=== PATIENT | female | born 1940 | race Caucasian/White ===

== ENCOUNTER 2019-09-20 08:01 | Inpatient (IN) | payer MEDICARE, BC ==
[~2019-09-20] VITALS: Ht 167.6 cm; Wt 80.0 kg
[~2019-09-20 08:01] MED LIST: AMIO200T61 PO; ASPI81TA35 PO; ATOR10TA70 PO; FURO-149 PO; LEVO75TA7 PO; LOSA50TA64 PO
[2019-09-20 08:45] LABS: BASOPHILS # (AUTO) 0.1 X10'3 (0-0.2); BASOPHILS % (AUTO) 0.8 % (0-1); EOSINOPHILS % (AUTO) 0.5 % (0-6); HEMATOCRIT 35.2 % (35.0-45.0); HEMOGLOBIN 12.2 g/dl (12.0-16.0); LYMPHOCYTES % (AUTO) 10.2 % (21-51); MEAN CORPUSCULAR HEMOGLOBIN 31.4 PG (27.0-31.0); MEAN CORPUSCULAR HGB CONC 34.7 g/dL (33.0-36.5); MEAN CORPUSCULAR VOLUME 90.4 FL (78-98); MEAN PLATELET VOLUME 7.8 FL (7.4-10.4); MONOCYTES # (AUTO) 0.4 X10'3 (0-0.9); MONOCYTES % (AUTO) 3.8 % (2-12); NEUTROPHILS # (AUTO) 8.3 X10'3 (1.8-7.7); NEUTROPHILS % (AUTO) 84.7 % (42-75); PLATELET COUNT 301 X10'3 (140-440); RED BLOOD COUNT 3.89 X10'6 (4.20-5.60); RED CELL DISTRIBUTION WIDTH 13.2 % (11.5-14.5); WHITE BLOOD COUNT 9.8 X10'3 (4.5-11.0)
[2019-09-20 08:58] LABS: ALANINE AMINOTRANSFERASE 16 U/L (12-78); ALBUMIN 3.6 G/DL (3.4-5.0); ALKALINE PHOSPHATASE 87 IU/L (46-116); ANION GAP 7 (8-16); ASPARTATE AMINO TRANSFERASE 23 U/L (10-37); BILIRUBIN,TOTAL 0.5 MG/DL (0.1-1.0); BLOOD UREA NITROGEN 21 MG/DL (7-18); BUN/CREATININE RATIO 21.9 (6.6-38.0); CALCIUM 9.5 MG/DL (8.5-10.1); CHLORIDE 101 MMOL/L (99-107); CREATININE 0.96 MG/DL (0.40-0.90); GLUCOSE 118 MG/DL (70-104); POTASSIUM 3.7 MMOL/L (3.5-5.1); SODIUM 137 MMOL/L (135-145); TOTAL CARBON DIOXIDE 29.3 MMOL/L (24-32); TOTAL PROTEIN 7.2 G/DL (6.4-8.2); eGFR 56 ML/MIN
[2019-09-20] MEDS ORDERED: nitroGLYCERIN-Tridil 50MG/D5W 250 ML IV PRN (09:24)
[2019-09-20] MEDS ORDERED: diltiazem 5mg/ml 5ml inj. IV ONE (09:25)
[2019-09-20] MEDS ORDERED: aspirin 81mg tab.chew PO ONE (09:25)
--- NOTE | 2019-09-20 10:04 | NUR ---
RORY SARAH IN TO SEE PTHARJINDER TO ADMIT
--- NOTE | 2019-09-20 10:05 | NUR ---
NTG DRIP HELD DUT TO HYPOTENSION.
[2019-09-20] MEDS ORDERED: bisacodyl 10mg suppository rectal RC PRN (10:10)
[2019-09-20] MEDS ORDERED: magnesium Cl slow-release 64mg tablet PO PRN (10:10)
[2019-09-20] MEDS ORDERED: morphine 2 MG/ML inj. syringe IV PRN ×2 (10:10)
[2019-09-20] MEDS ORDERED: diphenhydrAMINE 25mg capsule PO PRN (10:10)
[2019-09-20] MEDS ORDERED: HYDROcodone/acetaminophen 10/325mg tab PO PRN (10:10)
[2019-09-20] MEDS ORDERED: HYDROcodone/acetaminophen 5mg/325mg tablet PO PRN (10:10)
[2019-09-20] MEDS ORDERED: magnesium 4gm in 100ml NS 100 ML IV PRN (10:10)
[2019-09-20] MEDS ORDERED: mag hydrox/Alum hydrox/simeth 30ml oral suspension PO PRN (10:10)
[2019-09-20] MEDS ORDERED: magnesium 2GM in 50ml NS 50 ML IV PRN (10:10)
[2019-09-20] MEDS ORDERED: ondansetron/PF 4mg/2ml inj IV PRN (10:10)
[2019-09-20] MEDS ORDERED: acetaminophen 650mg rectal suppository RC PRN (10:10)
[2019-09-20] MEDS ORDERED: acetaminophen 325mg tablet PO PRN ×2 (10:10)
[2019-09-20] MEDS ORDERED: magnesium hydroxide 30ml (MOM) UD suspension PO PRN (10:10)
[2019-09-20] MEDS ORDERED: potassium Cl 20 mEq SR tablet PO PRN ×2 (10:10)
[2019-09-20] MEDS ORDERED: potassium CL 10mEq/100ml bag 100 ML IV PRN ×2 (10:10)
[2019-09-20] MEDS ORDERED: diltiazem-NS 100mg/100ml 100 ML IV PRN (10:15)
--- NOTE | 2019-09-20 10:15 | NUR ---
SON UPDATED ON PT STATUS AT PT REQUEST
[2019-09-20] MEDS ORDERED: HYDR12.55 PO (10:23)
[2019-09-20] MEDS ORDERED: PRAV10TA39 PO (10:24)
[2019-09-20] MEDS ORDERED: digoxin 250mcg/ml 2ml ampule IV ONE ×3 (10:30→22:30)
[2019-09-20 10:41] LABS: HEMOGLOBIN A1C 4.8 % (4.5-6.2)
[2019-09-20] MEDS: normal saline 1000ml 1,000 ML IV SCH ×2 (10:51→13:04)
--- NOTE | 2019-09-20 11:18 | NUR ---
Received report from Sallie VILLANUEVA in ED. Patient will be getting echo done in ED then will be admitted to room 7185K
--- NOTE | 2019-09-20 12:04 | NUR ---
Patient admitted to [facility]. patient oriented to room, hooked up to bedside mobile. 2 RN skin check done. Upon arrival, patient in sinus rimma and on cardizem gtt @ 5 ml/hr- will page . Vital signs stable, patient has no complaints at this time
[2019-09-20 12:10] VITALS: BP 118/40
[2019-09-20] MEDS ORDERED: enoxaparin 100mg/ml syringe SUBCUT SCH (12:10)
--- NOTE | 2019-09-20 12:22 | NUR ---
paged PAGER ID: [phone] MESSAGE: Kay walsh [phone]. RE Antony Cruz [id number]. Patient just admitted to room. Currently sinus rimma- rate 45-50. Drip currently off. Would you like me to D/C drip or leave it as ordered as PRN?
[2019-09-20] MEDS ORDERED: heparin 10,000 units/1 ML INJ IV ONE (12:25)
[2019-09-20] MEDS ORDERED: heparin 10,000 units/1 ML INJ IV PRN (12:25)
--- NOTE | 2019-09-20 12:29 | NUR ---
Spoke to Dr Wright regarding patient's decreased heart rate. Orders from MD to discontinue cardizem drip, and continue with orders to initiate heparin drip.
[2019-09-20] MEDS: heparin 25,000 UNIT/250ml bag 250 ML IV SCH (12:56)
[2019-09-20 14:45] VITALS: BP 128/52
[2019-09-20 15:00] VITALS: BP 128/52
--- NOTE | 2019-09-20 15:15 | NUR ---
Troponin 5.41 reported from lab, Dr Wright said he will reach out to cardiology and to make pt NPO at this time.
--- NOTE | 2019-09-20 16:23 | NUR ---
paged PAGER ID: [phone] MESSAGE: Kay walsh [phone]. RE Antony Madrigal [id number]. Patient has not eaten today and keeps asking when she can eat-- do you still want patient to be NPO now or NPO @ midnight?
--- NOTE | 2019-09-20 16:32 | NUR ---
Held 1630 IV push Digoxin due to patient's HR ranging between 58-62
[2019-09-20 18:00] VITALS: BP 145/61
--- NOTE | 2019-09-20 18:00 | NUR ---
Patient in room U 3025. I have received report from Joann and had the opportunity to ask questions and assume patient care. Patient is sitting in bed and eating dinner. NS running at 75 and heparin drip running at 900 gtt. Patient stable at this time.
--- NOTE | 2019-09-20 18:25 | NUR ---
Problems reprioritized. Patient report given, questions answered & plan of care reviewed with Margarette VILLANUEVA and Zohreh VILLANUEVA.
--- NOTE | 2019-09-20 18:30 | NUR ---
Patient in room PCU 3025. I have received report from RICH ivory and had the opportunity to ask questions and assume patient care.
[2019-09-20 20:00] VITALS: BP_SYST 144; BP_SYST 152; BP_SYST 155; BP_DIAS 47; BP_DIAS 56; BP_DIAS 64
[2019-09-20] MEDS: K and/or MAG REPLACEMENT MC SCH (20:00)
--- NOTE | 2019-09-20 20:08 | NUR ---
Lab called with critical troponin of 14.71. Dr. Zapata was notified by phone at 2004. No orders given.
[2019-09-20] MEDS ORDERED: temazepam 15mg capsule PO PRN (21:00)
[2019-09-20] MEDS: aspirin 81mg tablet.DR PO SCH (21:00)
[2019-09-20] MEDS: tirofiban 5mg in NS 100mL 100 ML IV SCH (21:44)
[2019-09-20 22:00] VITALS: BP 152/64
[2019-09-20] MEDS: levoTHYROXINE 100mcg tablet PO SCH (22:40)
[2019-09-20] MEDS: atorvastatin 20mg tablet PO SCH (22:40)
[2019-09-21] VITALS (9 sets, daily range): BP systolic 142–213; BP diastolic 46–78
[2019-09-21] MEDS: tirofiban 5mg in NS 100mL 100 ML IV SCH ×4 (03:40→22:22)
[2019-09-21 04:55] LABS: BASOPHILS % (AUTO) 0.5 % (0-1); EOSINOPHILS % (AUTO) 0.6 % (0-6); HEMATOCRIT 32.5 % (35.0-45.0); HEMOGLOBIN 11.3 g/dl (12.0-16.0); LYMPHOCYTES # (AUTO) 1.3 X10'3 (1.1-4.8); MEAN CORPUSCULAR HEMOGLOBIN 31.6 PG (27.0-31.0); MEAN CORPUSCULAR HGB CONC 34.9 g/dL (33.0-36.5); MEAN CORPUSCULAR VOLUME 90.6 FL (78-98); MEAN PLATELET VOLUME 8.2 FL (7.4-10.4); MONOCYTES # (AUTO) 0.4 X10'3 (0-0.9); MONOCYTES % (AUTO) 5.9 % (2-12); NEUTROPHILS # (AUTO) 4.6 X10'3 (1.8-7.7); PLATELET COUNT 298 X10'3 (140-440); RED BLOOD COUNT 3.59 X10'6 (4.20-5.60); RED CELL DISTRIBUTION WIDTH 12.8 % (11.5-14.5); WHITE BLOOD COUNT 6.3 X10'3 (4.5-11.0)
--- NOTE | 2019-09-21 05:12 | NUR ---
Orientee documentation: I have reviewed and agree with all interventions, assessments performed and documented by Zohreh Cruz RN.
[2019-09-21 05:15] LABS: ALANINE AMINOTRANSFERASE 21 U/L (12-78); ALBUMIN 2.9 G/DL (3.4-5.0); ALBUMIN/GLOBULIN RATIO 0.9 (1.1-1.5); ALKALINE PHOSPHATASE 77 IU/L (46-116); ANION GAP 6 (8-16); ASPARTATE AMINO TRANSFERASE 102 U/L (10-37); BILIRUBIN,TOTAL 0.6 MG/DL (0.1-1.0); BLOOD UREA NITROGEN 21 MG/DL (7-18); BUN/CREATININE RATIO 23.3 (6.6-38.0); CALCIUM 8.6 MG/DL (8.5-10.1); CHLORIDE 102 MMOL/L (99-107); GLUCOSE 113 MG/DL (70-104); POTASSIUM 3.8 MMOL/L (3.5-5.1); SODIUM 137 MMOL/L (135-145); TOTAL CARBON DIOXIDE 28.6 MMOL/L (24-32); eGFR 60 ML/MIN
[2019-09-21 05:16] LABS: CHOL/HDL RATIO 4.4 (0.00-4.99); CHOLESTEROL 222 MG/DL (0-200); HDL CHOLESTEROL 50 MG/DL (35-60); LDL CHOLESTEROL 154 MG/DL (50-100); PHOSPHORUS 2.8 MG/DL (2.3-4.5); TRIGLYCERIDES 154 MG/DL (20-135)
--- NOTE | 2019-09-21 06:00 | NUR ---
Patient in room PCU 3025. I have received report from valentina Osorio and had the opportunity to ask questions and assume patient care.
--- NOTE | 2019-09-21 06:20 | NUR ---
Patient in room PCU 3025. I have received report from Margarette RN and RICH Bruner and had the opportunity to ask questions and assume patient care.
--- NOTE | 2019-09-21 06:27 | NUR ---
Problems reprioritized. Patient report given, questions answered & plan of care reviewed with Shell Echevarria RN and RICH Palmer.
[2019-09-21] MEDS ORDERED: digoxin 125mcg (0.125mg) tablet PO SCH (07:00)
--- NOTE | 2019-09-21 07:01 | NUR ---
Spoke with hailey Guerin to feed pt breakfast and keep NPO after 12:00pm. He will heart cath her around 3:30/4pm.
[2019-09-21] MEDS: HYDROchlorothiazide 12.5mg capsule PO SCH (07:33)
[2019-09-21] MEDS: losartan 50mg tablet PO SCH ×2 (07:34→20:55)
[2019-09-21] MEDS: levoTHYROXINE 100mcg tablet PO SCH (07:35)
[2019-09-21] MEDS: atorvastatin 20mg tablet PO SCH (07:35)
[2019-09-21] MEDS: K and/or MAG REPLACEMENT MC SCH ×2 (07:40→20:00)
[2019-09-21] MEDS: heparin 25,000 UNIT/250ml bag 250 ML IV SCH ×2 (10:47→17:05)
[2019-09-21] MEDS: normal saline 1000ml 1,000 ML IV SCH (15:33)
--- NOTE | 2019-09-21 18:03 | NUR ---
Orientee documentation: I have reviewed and agree with all interventions, assessments performed and documented by RICH Saini.
--- NOTE | 2019-09-21 18:04 | NUR ---
[place]rientee Medication Administration: For this medication-pass time frame, all medication were reviewed, dispensed, administered and documented per hospital policy by RICH Saini.
--- NOTE | 2019-09-21 18:18 | NUR ---
Patient in room PCU 3025. I have received report from RICH Goff and had the opportunity to ask questions and assume patient care.
--- NOTE | 2019-09-21 18:19 | NUR ---
Problems reprioritized. Patient report given, questions answered & plan of care reviewed with RICH Pfeiffer. Explained PTT was drawn a little late, it just resulted and she informed me she will change the rate per protocol. All needs met at this time.
[2019-09-21] MEDS: aspirin 81mg tablet.DR PO SCH (20:55)
[2019-09-21] MEDS ORDERED: amLODIPine 2.5mg tablet PO ONE (23:50)
[2019-09-22] VITALS (10 sets, daily range): BP systolic 125–190; BP diastolic 43–77
[2019-09-22 00:16] LABS: BASOPHILS % (AUTO) 0.4 % (0-1); EOSINOPHILS # (AUTO) 0.1 X10'3 (0-0.9); EOSINOPHILS % (AUTO) 0.5 % (0-6); HEMATOCRIT 35.2 % (35.0-45.0); HEMOGLOBIN 12.3 g/dl (12.0-16.0); LYMPHOCYTES # (AUTO) 1.1 X10'3 (1.1-4.8); LYMPHOCYTES % (AUTO) 11.1 % (21-51); MEAN CORPUSCULAR HEMOGLOBIN 31.6 PG (27.0-31.0); MEAN CORPUSCULAR VOLUME 90.2 FL (78-98); MEAN PLATELET VOLUME 7.6 FL (7.4-10.4); MONOCYTES # (AUTO) 0.5 X10'3 (0-0.9); MONOCYTES % (AUTO) 4.8 % (2-12); NEUTROPHILS # (AUTO) 8.5 X10'3 (1.8-7.7); NEUTROPHILS % (AUTO) 83.2 % (42-75); PLATELET COUNT 326 X10'3 (140-440); RED BLOOD COUNT 3.91 X10'6 (4.20-5.60); RED CELL DISTRIBUTION WIDTH 13.2 % (11.5-14.5); WHITE BLOOD COUNT 10.2 X10'3 (4.5-11.0)
[2019-09-22 00:29] LABS: ALANINE AMINOTRANSFERASE 28 U/L (12-78); ALBUMIN 3.3 G/DL (3.4-5.0); ALBUMIN/GLOBULIN RATIO 0.9 (1.1-1.5); ALKALINE PHOSPHATASE 90 IU/L (46-116); ANION GAP 8 (8-16); ASPARTATE AMINO TRANSFERASE 113 U/L (10-37); BILIRUBIN,TOTAL 0.8 MG/DL (0.1-1.0); BLOOD UREA NITROGEN 19 MG/DL (7-18); BUN/CREATININE RATIO 19.8 (6.6-38.0); CALCIUM 8.9 MG/DL (8.5-10.1); CHLORIDE 102 MMOL/L (99-107); CREATININE 0.96 MG/DL (0.40-0.90); GLUCOSE 123 MG/DL (70-104); MAGNESIUM 1.9 MG/DL (1.5-2.4); PHOSPHORUS 2.5 MG/DL (2.3-4.5); POTASSIUM 3.8 MMOL/L (3.5-5.1); SODIUM 137 MMOL/L (135-145); TOTAL CARBON DIOXIDE 27.1 MMOL/L (24-32); TOTAL PROTEIN 6.9 G/DL (6.4-8.2); eGFR 56 ML/MIN
[2019-09-22] MEDS: normal saline 1000ml 1,000 ML IV SCH (05:41)
[2019-09-22] MEDS: tirofiban 5mg in NS 100mL 100 ML IV SCH (05:41)
[2019-09-22] MEDS ORDERED: midazolam 2 mg/2 ml injection ONE ×2 (06:00→06:37)
[2019-09-22] MEDS ORDERED: fentaNYL/PF 50MCG/1 ML 2ML syringe ONE (06:01)
[2019-09-22] MEDS ORDERED: LIDOcaine 1% (10mg/ml)w/preservative injection 20ml MDV ONE ×2 (06:01→06:37)
[2019-09-22] MEDS ORDERED: heparin 1,000unit/ml 10ml vial 10 ML ONE (06:01)
[2019-09-22] MEDS ORDERED: iohexol 350MG/ML 100ml bottle IV ONE (06:01)
--- NOTE | 2019-09-22 06:41 | NUR ---
Problems reprioritized. Patient report given, questions answered & plan of care reviewed with RICH Zepeda.
--- NOTE | 2019-09-22 06:50 | NUR ---
Patient in room PCU 3025. I have received report from Margarette VILLANUEVA and had the opportunity to ask questions and assume patient care.
[2019-09-22] MEDS: atorvastatin 20mg tablet PO SCH (07:57)
[2019-09-22] MEDS: HYDROchlorothiazide 12.5mg capsule PO SCH (07:57)
[2019-09-22] MEDS: levoTHYROXINE 100mcg tablet PO SCH (07:57)
[2019-09-22] MEDS: losartan 50mg tablet PO SCH (07:57)
[2019-09-22] MEDS ORDERED: atorvastatin 10mg tablet PO SCH (08:00)
[2019-09-22] MEDS ORDERED: clopidogrel 75mg tablet PO SCH (08:00)
[2019-09-22] MEDS: K and/or MAG REPLACEMENT MC SCH (08:00)
[2019-09-22] MEDS ORDERED: pravastatin 10mg tablet PO SCH (08:00)
[2019-09-22] MEDS ORDERED: amiodarone 200mg tablet PO SCH (08:00)
[2019-09-22] MEDS ORDERED: PRAV80TA3 PO (12:54)
[2019-09-22] MEDS ORDERED: APIX5TAB3 PO (12:54)
[2019-09-22] MEDS ORDERED: LEVO100T9 PO (12:54)
[2019-09-22] MEDS ORDERED: AMIO200T61 PO (12:54)
[2019-09-22] MEDS ORDERED: CLOP75TA8 PO (12:58)
[2019-09-22] MEDS ORDERED: metoprolol succinate 25mg (24-HOUR) SR. Tablet PO SCH (13:00)
[2019-09-22] MEDS ORDERED: METO-395 PO (13:00)
--- NOTE | 2019-09-22 14:53 | NUR ---
Patient safe for discharge per MD orders, discharge instructions reviewed and questions answered, prescriptions sent into patient pharmacy, piv and tele DC'd, wheeled to lobby, picked up by son in private vehicle, attempted to call in appointment with Dr. Hansen's office, unable to do so.
--- NOTE | 2019-09-27 12:44 | NUR ---
Case Management DC follow up: Spoke to pt via telephone. s/p: afib Reports: "feeling pretty good, more clear headed" Denies: SOB, resp distress, acute/persistent CP, GARCIA, blurry vision, N/V, emergent general pain, abd tenderness or distention, vertigo, syncope, fever, unexplained bruising, bleeding. Verbalizes understanding of s/s that would warrant 9-11/ER visit for further evaluation. Went over orthostatic hypotension protocol as a precaution, pt verbalizes understanding, compliance. Verbalizes understanding of current/new Rx and changes in dosages & why prescribed; taking as ordered, no ase noted r/t polypharmacy. Acknowledges need to follow-up/keep appts w/PCP/Dr Salcido already went to see post DC, pt will need Labs/TSH in 3-4 wks r/t change in Synthroid dose; awaiting call back from Dr Hansen to schedule follow up appt. Questions answered, needs met at DC. No further questions at this time.
== END 2019-09-22 14:40 | disposition home or self-care (01) | DRG 282 ==
LOC: ER 08:01 → ED HOLD 10:09 → EDBEDREQ 10:46 → PCU 3S 12:04
PROVIDERS: ADMIT Family Medicine; ATTEND Family Medicine
DX: I48.0 Paroxysmal atrial fibrillation (principal); I21.4 Non-ST elevation (NSTEMI) myocardial infarction; E78.5 Hyperlipidemia, unspecified; I11.0 Hypertensive heart disease with heart failure; I35.0 Nonrheumatic aortic (valve) stenosis; I25.10 Atherosclerotic heart disease of native coronary artery without angina pectoris; M19.90 Unspecified osteoarthritis, unspecified site; Z66 Do not resuscitate; I50.9 Heart failure, unspecified; Z96.643 Presence of artificial hip joint, bilateral; E03.2 Hypothyroidism due to medicaments and other exogenous substances; Z95.1 Presence of aortocoronary bypass graft; Z82.49 Family history of ischemic heart disease and other diseases of the circulatory system; I25.2 Old myocardial infarction; Z79.82 Long term (current) use of aspirin; Z79.890 Hormone replacement therapy; Z79.899 Other long term (current) drug therapy; Z83.3 Family history of diabetes mellitus; Z88.8 Allergy status to other drugs, medicaments and biological substances
CPT/HCPCS: 36415; 71045; 80053; 80061; 80162; 83036; 83735; 84100; 84443; 84484; 85025; 85730; 87081; 93005; 93306; 99152; 99285; A4620; A6258; C1769; G0378; J1160; J1644; J2001; J2250; J3010; J3246; J3490; J7030; Q9967

== ENCOUNTER 2023-08-04 17:09 | Emergency (ER) | payer MEDICARE, BC ==
[~2023-08-04] VITALS: Ht 167.6 cm; Wt 77.5 kg
[~2023-08-04 17:09] MED LIST changes: +AMI200T PO; -AMIO200T61 PO; +APIX5TAB3 PO; -ASPI81TA35 PO; -ATOR10TA70 PO; +CLOP-32 PO; -FURO-149 PO; +HYDR12.55 PO; +LEVO100T9 PO; -LEVO75TA7 PO; +METO-395 PO; +PRAV80TA3 PO
[2023-08-04 17:20] VITALS: BP 219/84; PULSE 57; RESP 18; TEMP 98; O2SAT 99
[2023-08-04 18:51] LABS: BILIRUBIN,URINE NEGATIVE (Neg); CLARITY,URINE SLIGHTLY CLOUDY (Clear); COLOR,URINE YELLOW (Yellow); GLUCOSE, URINE NEGATIVE (Neg); KETONES,URINE NEGATIVE (Neg); LEUKOCYTE ESTERASE ,URINE SMALL (Neg); NITRITES, URINE NEGATIVE (Neg); OCCULT BLOOD,URINE NEGATIVE (Neg); PROTEIN,URINE NEGATIVE (Neg); UA COLLECTION TYPE CLN CATCH MIDSTREAM; UROBILINOGEN,URINE 0.2 E.U/dL (0.2-1.0)
[2023-08-04 18:56] LABS: SQUAMOUS EPITHELIAL CELL,UR MANY /LPF (FEW)
[2023-08-04 18:57] LABS: BACTERIA,URINE 1+ /HPF (Neg); RBC,URINE 0-2 /HPF (0-2); WBC,URINE 50-100 /HPF (0-4)
[2023-08-04] MEDS ORDERED: CEPH-585 PO (19:03)
== END 2023-08-04 19:16 | disposition home or self-care (01) ==
LOC: ER 17:10
DX: N39.0 Urinary tract infection, site not specified (principal); Z88.8 Allergy status to other drugs, medicaments and biological substances; I11.0 Hypertensive heart disease with heart failure; I50.9 Heart failure, unspecified; I25.10 Atherosclerotic heart disease of native coronary artery without angina pectoris; I25.2 Old myocardial infarction; Z95.1 Presence of aortocoronary bypass graft; G89.29 Other chronic pain
CPT/HCPCS: 81001; 99283

== ENCOUNTER 2025-01-23 11:19 | Day surgery (SDC) | payer BC, MEDICARE ==
[~2025-01-23] VITALS: Ht 167.6 cm; Wt 77.6 kg
[2025-01-23] VITALS (14 sets, daily range): BP systolic 139–188; BP diastolic 62–87; PULSE 61–69; RESP 14–20; TEMP 98.1; O2SAT 89–98
[~2025-01-23 11:19] MED LIST changes: -AMI200T PO; +ATOR20TA PO; -CLOP-32 PO; +FURO-149 PO; -HYDR12.55 PO; -LEVO100T9 PO; +LEVO75TA PO; -METO-395 PO; -PRAV80TA3 PO
--- NOTE | 2025-01-23 12:02 | ELECTROCARDIOGRAPH REPORT ---
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 DANGELO Che Measurements Intervals [place] Rate: 58 P: 72 NC: 231 QRS: 97 QRSD: 115 T: 253 QT: 478 QTc: 470 Interpretive Statements Sinus rhythm Ventricular premature complex Prolonged NC interval Probable left atrial enlargement Consider left ventricular hypertrophy Inferior infarct, age indeterminate ST elevation, consider anterior injury Lateral leads are also involved Electronically Signed On 01-23-2025 16:30:[address] DANGELO Che Please click the below link to view image of tracing.
[2025-01-23] MEDS ORDERED: POTA-208 PO (12:08)
[2025-01-23] MEDS ORDERED: FURO-150 PO (12:08)
[2025-01-23] MEDS ORDERED: TRAV2.5D6 RIGHTEYE (12:08)
[2025-01-23] MEDS ORDERED: APIX5TAB3 PO (12:08)
[2025-01-23] MEDS ORDERED: CARV3.122 PO (12:08)
[2025-01-23] MEDS ORDERED: BRIM5DRO32 RIGHTEYE (12:08)
[2025-01-23] MEDS ORDERED: SPIR25TA5 PO (12:08)
[2025-01-23 12:39] LABS: MEAN PLATELET VOLUME 8.2 FL (7.4-10.4); RED CELL DISTRIBUTION WIDTH 13.6 % (11.5-14.5)
[2025-01-23 12:44] LABS: APTT 24 SECONDS (22-32); INR 1.0 INR
[2025-01-23 12:50] LABS: CREATININE 0.89 MG/DL (0.40-0.90); TOTAL CARBON DIOXIDE 26.0 MMOL/L (24-32); eCRCL 42 ML/MIN; eGFR 60 ML/MIN
[2025-01-23] MEDS ORDERED: LIDOcaine 1% 30ml preserv. free vial ONE (15:58)
[2025-01-23] MEDS ORDERED: midazolam 1 mg/ML 2ml injection ONE (15:59)
[2025-01-23] MEDS ORDERED: fentaNYL/PF 50MCG/1 ML 2ML syringe ONE (15:59)
[2025-01-23] MEDS ORDERED: iohexol 350 MG/ML 50ML vial IV ONE ×2 (17:03→17:10)
[2025-01-23] MEDS ORDERED: heparin 1,000unit/ml 10ml vial 10 ML ONE (17:14)
[2025-01-23] MEDS ORDERED: clopidogrel 300mg tablet ONE (17:35)
[2025-01-23] MEDS ORDERED: CLOP-32 PO (19:10)
[2025-01-23] MEDS: hydrALAZINE 20mg/ml inj. IV ONE (19:12)
[2025-01-23] MEDS ORDERED: ASPI-1265 PO (19:13)
[2025-01-23] MEDS: albuterol 2.5 MG/3 ML nebule NEB ONE (19:17)
[2025-01-23] MEDS: albuterol 2.5 MG/3 ML nebule ONE (19:18)
[2025-01-23] MEDS ORDERED: OXAZEpam 15mg capsule PO PRN (19:30)
[2025-01-23] MEDS ORDERED: HYDROcodone/acetaminophen 10/325mg tab PO PRN (19:30)
[2025-01-23] MEDS ORDERED: HYDROcodone/acetaminophen 5mg/325mg tablet PO PRN (19:30)
[2025-01-23] MEDS: mag hydrox/Alum hydrox/simeth 30ml oral suspension PO ONE (19:46)
[2025-01-24 07:30] LABS: ISTAT HGB MIX 9.5 g/dl (12.0-16.0); ISTAT Hct MIX 28 %PCV (35-45); ISTAT O2 SATURATION MIX VENOUS 56 % (60-80); ISTAT SOURCE VEN
--- NOTE | 2025-01-27 13:21 | CARDIOLOGY REPORT ---
DATE OF SERVICE: 01/23/2025 DICTATING PHYSICIAN: Aislinn Hansen MD CARDIAC CATHETERIZATION REPORT DATE OF STUDY: 01/23/2025 PROCEDURES: * Right heart catheterization. * Selective coronary angiography. * Selective coronary artery bypass graft angiography x 2. * Selective left internal mammary artery angiography. * Aortic root angiography. * Angioplasty of the saphenous vein graft to the right coronary artery. * Stenting x 1 of the saphenous vein graft to the right coronary artery. * Conscious sedation monitoring time for 60 minutes. INDICATION: Aortic stenosis. PHYSICIAN: Aislinn Hansen MD DESCRIPTION OF PROCEDURE: After informed consent was obtained, the patient was brought to the lab where she was prepped and draped in the usual sterile fashion. A 6-Danish sheath was inserted into the right femoral artery and an 8-Danish sheath in the right femoral vein. Next, using a Arlington-Rachel catheter, the catheter was advanced under fluoroscopy guidance and floated into the right-sided chambers and outflow tract where pulmonary capillary wedge pressure and right-sided pressures were obtained. The Arlington-Rachel catheter was then removed. Using a JL4 followed by a JR4 catheter, selective coronary angiography was then performed. The JR4 catheter was manipulated to engage the left internal mammary artery and selective left internal mammary artery angiography was performed. The catheter was also manipulated to engage the vein graft to the right coronary artery and selective coronary angiography of the vein graft to the RCA was performed. PCI was then performed as described below. HEMODYNAMICS: For the patient's hemodynamics, please refer to the event log. The patient's pulmonary capillary wedge pressure was 34/41 with a mean of 34 mmHg. Pulmonary arterial pressure was 65/29 with a mean of 44 mmHg. Right ventricular pressure was 62/9 with a mean of 17 mmHg. Right atrial pressure was 16/15 with a mean of 13 mmHg. AO saturation was 95%; PA saturation 56%. Hemoglobin was 9.5. FINDINGS: All of the patient's [place]aloon coronary arteries are occluded. The left internal mammary artery to the LAD is widely patent. The saphenous vein graft to the RCA has a 90% stenosis. A nub is identified. This may have been a vein graft to the circumflex coronary artery that is occluded. Percutaneous coronary intervention: Using a multipurpose guiding catheter, the catheter was advanced and the vein graft to the RCA engaged. This was then angioplastied with a 2.5 x 20 mm Trek balloon to rated burst atmospheres. Thereafter, using a 4.0 x 38 mm [place] stent, the stent was advanced across the lesion where it was deployed. Follow-up angiography revealed very good angiographic results. IMPRESSION: * Please note that the patient was quite tachypneic and limited views with limited contrast was used to expedite the procedure. * Occluded chickaloon coronary arteries. * Patent BRADSHAW to the LAD. * A nub is identified, which may have been a vein graft to the circumflex coronary artery. * 90% plus stenosis of the vein graft to the right coronary artery. This was stented with a 4.0 x 38 mm Rodri [place] stent with good results. * Elevated right-sided pressures. The patient's mean pulmonary capillary wedge pressure was 34 and mean pulmonary arterial pressure was 44 mmHg. Aislinn Hansen MD TID: [id number] RECEIPT: [id number] NATE/ISMAEL
== END 2025-01-23 20:45 | disposition home or self-care (01) ==
LOC: SSTAY O 11:19
PROVIDERS: ATTEND Student in an Organized Health Care Education/Training Program
DX: I35.0 Nonrheumatic aortic (valve) stenosis (principal); I25.810 Atherosclerosis of coronary artery bypass graft(s) without angina pectoris; I49.3 Ventricular premature depolarization; R94.31 Abnormal electrocardiogram [ECG] [EKG]; I25.2 Old myocardial infarction
CPT/HCPCS: 36415; 80048; 82803; 85014; 85025; 85610; 85730; 93005; 93457; 93567; 94640; 99152; 99153; C1760; C1874; C9604; J0360; J1644; J1938; J2003; J2250; J3010; J7030; Q9967; 94760; A4615; A4620; A6258; C1725; C1751; C1769

== ENCOUNTER 2025-02-13 08:06 | Outpatient (CLI) | payer BC ==
[~2025-02-13 08:06] MED LIST changes: +ASPI-1265 PO; -ATOR20TA PO; +BRIM5DRO32 RIGHTEYE; +CARV3.122 PO; +CLOP-32 PO; -FURO-149 PO; +FURO-150 PO; +POTA-208 PO; +SPIR25TA5 PO; +TRAV2.5D6 RIGHTEYE
[2025-02-13 09:45] LABS: MEAN PLATELET VOLUME 7.4 FL (7.4-10.4); RED CELL DISTRIBUTION WIDTH 13.8 % (11.5-14.5)
[2025-02-13 10:04] LABS: APTT 27 SECONDS (22-32); INR 1.1 INR
[2025-02-13 10:12] LABS: CREATININE 0.97 MG/DL (0.40-0.90); PRO BRAIN NATRIURETIC PEPTIDE 11168 PG/ML (0-450); TOTAL CARBON DIOXIDE 30.2 MMOL/L (24-32); eGFR 54 ML/MIN
[2025-02-13] MEDS ORDERED: IODIXANOL 320 MG/ML INFUS..BTL 100ML IV ONE (11:09)
--- NOTE | 2025-02-13 11:20 | RADIOLOGY REPORT ---
DI CHEST,TWO VIEWS CLINICAL HISTORY: AV STENOSIS,SOB,CAROTID STENOSIS COMPARISON: DI CHEST,SINGLE VIEW on DOS: 08/13/23, CHEST,SINGLE VIEW on DOS: 09/20/19 TECHNIQUE: Frontal and lateral view of the chest was obtained FINDINGS: Lines and Tubes: None Lungs: Moderate right pleural effusion and right basilar opacity. Cardiomediastinal contours:Cardiomegaly. Bones: No acute osseous abnormality. IMPRESSION: Moderate right pleural effusion and right basilar opacity.
--- NOTE | 2025-02-13 18:45 | CARDIOLOGY REPORT ---
APPROVED REPORT EXAM: Limited 2D, Doppler, and color-flow Echocardiogram. Patient Location: OUT-PATIENT Blood Pressure: 120/56 mmHg Heart Rate: 53 bpm Rhythm: SINUS BRADYCARDIA Indications AORTIC STENOSIS CORONARY ARTERY DISEASE CABG X6 2015 [employer] Foreman: Namita Hansen MD Previous echo: 10/30/24 MMCR AB (EF 20-25%, severe LFLG CHRISTY 0.8 cmsq, pkV 3.60 cmsq, grad 52 / 30 mmHg, LVOT 2.09, mTR, mMR, DI 0.23) 2D Dimensions LVOT Diameter 2.06 (1.8-2.4cm) M-Mode Dimensions IVSd 1.64 (0.7-1.1cm) LVDd 5.70 (4.0-5.6cm) PWd 1.47 (0.7-1.1cm) Aortic Cusp Exc 0.70 (1.5-2.0cm) IVSs 1.38 cm LVDs 5.21 (2.0-3.8cm) FS (%) 18 % PWs 1.18 cm ESV(Teich) 155.0 ml LVEF(%) 30 (>50%) Aortic Valve AoV Peak Teo. 404.2 cm/s AoV VTI 112.5 cm AO Peak GR. 65.4 mmHg AO Mean GR. 40 mmHg LVOT VTI 30.49 cm LVOT Peak Teo. 106.9 cm/s CHRISTY (VMAX) 0.88 cm2 CHRISTY (VTI) 0.90 cm2 AV DI 0.27 % LEFT VENTRICLE Dilated LV size and severely reduced function. Moderate concentric hypertrophy. Multisegmental wall motion abnormalities noted. The basal inferoseptum appears aneurysmal. LVEF is 25-30%. RIGHT VENTRICLE RV size appears normal with at least mildly reduced systolic function. ATRIA LA appears severely dilated. RA appears at least mildly dilated. AORTIC VALVE Trileaflet AV appears heavily calcified with significant stenosis demonstrated by reduced excursion and increased transvalvular and ascending aorta turbulance. CHRISTY: 0.88 cmsq; Pkv: 4.08 m/sec; Gradients: 65 / 40 mmHG. AV DI is measured at 0.27. Mild insufficiency. MITRAL VALVE Mild MV annular calcification without obvious stenosis. Mild regurgitation. TRICUSPID VALVE TV appears structurally normal with trace regurgitation. PERICARDIUM Trace anterior pericardial effusion best visualized subcostally. No obvious hemodynamic compromise. Other Information Study Quality: Adequate Conclusion Dilated LV size and severely reduced function. Moderate concentric hypertrophy. Multisegmental wall motion abnormalities noted. The basal inferoseptum appears aneurysmal. LVEF is 25-30%. RV size appears normal with at least mildly reduced systolic function. LA appears severely dilated. RA appears at least mildly dilated. Trileaflet AV appears heavily calcified with significant stenosis demonstrated by reduced excursion and increased transvalvular and ascending aorta turbulance. CHRISTY: 0.88 cmsq; Pkv: 4.08 m/sec; Gradients: 65 / 40 mmHG. AV DI is measured at 0.27. Mild insufficiency. Mild MV annular calcification without obvious stenosis. Mild regurgitation. TV appears structurally normal with trace regurgitation. Trace anterior pericardial effusion best visualized subcostally. No obvious hemodynamic compromise.
== END 2025-02-13 23:59 | disposition home or self-care (01) ==
LOC: RAD 08:06
PROVIDERS: ATTEND Internal Medicine Cardiovascular Disease
DX: I08.0 Rheumatic disorders of both mitral and aortic valves (principal); I35.0 Nonrheumatic aortic (valve) stenosis; R06.02 Shortness of breath; I65.29 Occlusion and stenosis of unspecified carotid artery; I51.7 Cardiomegaly; J90 Pleural effusion, not elsewhere classified
CPT/HCPCS: 36415; 71046; 71275; 74174; 75572; 80053; 83880; 85025; 85610; 85730; 93308; Q9967